=== PATIENT | female | born 1990 | race Caucasian/White ===

== ENCOUNTER 2022-08-13 20:53 | Emergency (ER) | payer OTHER ==
[2022-08-13 21:00] VITALS: BP 107/69; PULSE 84; RESP 18; TEMP 98.7; BMI 28.6
[2022-08-13] MEDS ORDERED: KETOROLAC TROMETHAMINE 30 MG/1 ML VIAL IM ONE (22:19)
[2022-08-13] MEDS ORDERED: FAMOTIDINE 20 MG TABLET PO ONE (22:52)
[2022-08-13] MEDS ORDERED: FAMOTIDINE 20 MG TABLET ONE (22:53)
== END 2022-08-13 23:09 | disposition home or self-care (01) ==
LOC: JERFT 20:53
PROC: 3E0233Z Introduction of Anti-inflammatory into Muscle, Percutaneous Approach (ICD-10-PCS; principal; 2022-08-13)
DX: R10.13 Epigastric pain (principal); R19.7 Diarrhea, unspecified
CPT/HCPCS: 99284-25